=== PATIENT | female | born 1990 | race Caucasian/White ===

== ENCOUNTER 2016-09-05 15:45 | Outpatient (CLI) | payer OTHER ==
[~2016-09-05] VITALS: Ht 152.4 cm; Wt 69.0 kg
[2016-09-05 16:45] LABS: HEMATOCRIT 37.7 % (36.0-46.0); MCHC 33.4 G/DL (30.0-36.0); MCV 89.8 FL (83-99); MEAN PLAT.VOLUME 10.3 uM^3 (9.5-12.4); PLATELET COUNT 146 K/uL (156-360); RBC DIS.WIDTH-CV 13.3 % (11.8-14.6); WHITE BLOOD COUNT 8.1 K/uL (4.1-10.2)
[2016-09-05 16:54] LABS: CHLORIDE 106 mEq/L (99-109); POTASSIUM 3.6 mEq/L (3.7-5.4); SODIUM 136 mEq/L (136-147)
[2016-09-05 16:55] LABS: GLUCOSE 100 mg/dL (70-99)
[2016-09-05 16:57] LABS: ANION GAP 8 MEQ/L (2-14)
[2016-09-05 17:00] LABS: UREA NITROGEN (BUN) 4 mg/dL (9-23)
[2016-09-05 17:01] LABS: GFR ESTIMATE (CALCULATED) > 59 mL/min/
[2016-09-05 19:39] LABS: INFLUENZA A VIRAL ANTIGEN POSITIVE; INFLUENZA B VIRAL ANTIGEN NEGATIVE
[2016-09-05 20:38] VITALS: BP 111/74
[2016-09-05] MEDS ORDERED: SEROQUEL100 MG PO (21:31)
[2016-09-05] MEDS ORDERED: LAMICTAL100 MG PO (21:31)
== END 2016-09-05 20:40 | disposition hospice, inpatient (51) ==
LOC: LDRP-OP 15:45 → EME 15:45 → EDSTATUS 20:59
PROVIDERS: Emergency Medicine
DX: O99.513 Diseases of the respiratory system complicating pregnancy, third trimester (principal); J10.1 Influenza due to other identified influenza virus with other respiratory manifestations; J45.901 Unspecified asthma with (acute) exacerbation; Z3A.28 28 weeks gestation of pregnancy
CPT/HCPCS: 71020; 80048; 85027; 87502; 94640; 94640 76; 99281; 99285; J2930; J7030

== ENCOUNTER 2016-09-05 21:04 | Outpatient (CLI) | payer OTHER ==
[~2016-09-05] VITALS: Ht 152.4 cm; Wt 68.2 kg
[2016-09-05] MEDS ORDERED: SEROQUEL100 MG PO (21:31)
[2016-09-05] MEDS ORDERED: LAMICTAL100 MG PO (21:31)
[2016-09-05 21:35] VITALS: BP 131/69
[2016-09-06] VITALS (8 sets, daily range): BP systolic 111–133; BP diastolic 63–77
[2016-09-06 06:36] LABS: EOSINOPHIL (%) 0 % (0-5); HEMATOCRIT 32.9 % (36.0-46.0); IMMATURE GRANULOCYTE (%) 0.8 % (0.0-0.7); IMMATURE GRANULOCYTE COUNT 0.1 K/uL; LYMPHOCYTE COUNT 0.8 K/uL (1.0-2.8); MCH 29.4 PG (29.0-34.0); MCHC 32.8 G/DL (30.0-36.0); MCV 89.6 FL (83-99); MEAN PLAT.VOLUME 10.4 uM^3 (9.5-12.4); MONOCYTE (%) 3.5 % (3-12); MONOCYTE COUNT 0.3 K/uL (0-0.8); NEUTROPHIL (%) 86.5 % (45-76); NEUTROPHIL COUNT 7.3 K/uL (1.8-6.4); PLATELET COUNT 145 K/uL (156-360); RBC DIS.WIDTH-CV 13.6 % (11.8-14.6); RBC DIS.WIDTH-SD 44.4 % (39-53); RED BLOOD COUNT 3.67 M/uL (3.80-5.20); WHITE BLOOD COUNT 8.5 K/uL (4.1-10.2)
[2016-09-06 06:48] LABS: BILIRUBIN NEGATIVE; BLOOD NEGATIVE; COLOR YELLOW ((YELLOW)); GLUCOSE (STRIP) 500; KETONES TRACE; LEUKOCYTES NEGATIVE; NITRITE NEGATIVE; PROTEIN (STRIP) NEGATIVE; SPECIFIC GRAVITY 1.014 (1.000-1.030); UROBILINOGEN 0.2 MG/DL (0.2-1.0)
[2016-09-06 06:50] LABS: ADD MIUA? NO; UCUL ADDED? NO
[2016-09-06 10:47] LABS: TREPONEMA ANTIBODY NEGATIVE (NEGATIVE)
[2016-09-07] VITALS (9 sets, daily range): BP systolic 95–123; BP diastolic 55–72
[2016-09-07 10:13] LABS: HBSG INDEX 0.15; HIV-1/2 AB/AG COMBO Nonreactive
[2016-09-08] VITALS (7 sets, daily range): BP systolic 108–131; BP diastolic 57–84
[2016-09-08 12:37] LABS: CHLAMYDIA TRACHOMATIS NEGATIVE; NEISSERIA GONORRHOEAE NEGATIVE
[2016-09-09 03:00] VITALS: BP 106/54
[2016-09-09 07:28] VITALS: BP 100/55
[2016-09-09 07:55] VITALS: BP 123/68
[2016-09-09 08:11] VITALS: BP 123/68
[2016-09-09 11:24] VITALS: BP 118/69
[2016-09-09 15:09] VITALS: BP 118/75
== END 2016-09-09 21:45 | disposition home or self-care (01) ==
LOC: LDRP-OP 21:04 → 2WEST 21:05
PROVIDERS: Obstetrics & Gynecology
DX: O99.512 Diseases of the respiratory system complicating pregnancy, second trimester (principal); J10.1 Influenza due to other identified influenza virus with other respiratory manifestations; Z3A.28 28 weeks gestation of pregnancy; J45.909 Unspecified asthma, uncomplicated
CPT/HCPCS: 76805; 81003; 85025; 86703; 86762; 86780; 87340; 87491; 87591; 94640; 94640 76; 99202; G0378; J2930; J7120; J7512